=== PATIENT | male | born 1975 | race Caucasian/White ===

== ENCOUNTER 2016-05-15 10:16 | Emergency (ER) | payer SELFPAY ==
[~2016-05-15] VITALS: Ht 180.3 cm; Wt 112.5 kg
[~2016-05-15 10:16] MED LIST: MOBIC15 MG PO; MOTRIN600 MG PO; PREDNISONE50 MG PO; PREVACID30 MG PO; TRAMADOL HCL50 MG PO
[2016-05-15 10:52] VITALS: BP 130/87
[2016-05-15] MEDS ORDERED: MOTRIN600 MG PO (13:14)
[2016-05-15] MEDS ORDERED: FLEXERIL5 MG PO (13:14)
[2016-05-15] MEDS ORDERED: TRAMADOL HCL50 MG PO (13:14)
== END 2016-05-15 13:37 | disposition home or self-care (01) ==
LOC: EME 10:16
DX: S39.012A Strain of muscle, fascia and tendon of lower back, initial encounter (principal); W00.0XXA Fall on same level due to ice and snow, initial encounter
CPT/HCPCS: 72100; 99281; 99284